=== PATIENT | male | born 1965 | race African-American/Black ===

== ENCOUNTER 2016-09-07 13:31 | Inpatient (IN) | payer OTHER ==
[2016-09-07 15:40] VITALS: BMI 17.9
--- NOTE | 2016-09-07 18:26 | HP ---
COWS - Scale Resting Pulse: 1= [place] 81-100 Sweatin= Chills/Flushing Restless Observation: 3= Extraneous Movement Pupil Size: 0= Normal to Room Light Bone or Joint Aches: 2= Severe Diffuse Aches Runny Nose/ Eye Tearin= Runny Nose/Eyes GI Upset > 30mins: 1= Stomach Cramp Tremor Observation: 2= Slight Tremor Visible Yawning Observation: 1= 1-2x During Session Anxiety or Irritability: 2=Irritable/Anxious Goose Flesh Skin: 0=Smooth Skin COWS Score: 15 Admission [facility] Chief Complaint: WITHDRAWAL SX Allergies/Adverse Reactions: Allergies Allergy/AdvReac Type Severity Reaction Status Date / Time No Known Allergies Allergy Verified 09/15/14 14:52 History of Present Illness: 51 YEARS OLD MALE WITH LONG HISTORY OF ALCOHOL OPIOID NICOTINE DEPENDENCE HAS ASTHMA AND WEIGHT LOSS HAS DEPRESSION IS ADMITTED TO DETOX Exam Limitations: No Limitations - Ebola screening Have you traveled outside of the country in the last 21 days: No Have you had contact with anyone from an Ebola affected area: No Have you been sick,other than usual withdrawal symptoms: No Do you have a fever: No - Review of Systems Constitutional: Chills, Loss of Appetite, Changes in sleep, Unintentional Wgt. Loss, Unexplained wgt Loss EENT: reports: Hearing Loss (RIGHT EAR) Respiratory: reports: No Symptoms reported Cardiac: reports: No Symptoms Reported GI: reports: Nausea, Poor Appetite, Poor Fluid Intake, Indigestion, Abdominal cramping : reports: No Symptoms Reported Musculoskeletal: reports: Back Pain, Joint Pain, Muscle Pain, Neck Pain Integumentary: reports: No Symptoms Reported Neuro: reports: Tremors Endocrine: reports: No Symptoms Reported Hematology: reports: No Symptoms Reported Psychiatric: reports: Judgement Intact, Depressed Other Systems: Reviewed and Negative Patient History - Patient Medical History Hx Anemia: No Hx Asthma: Yes (MDI) Hx Chronic Obstructive Pulmonary Disease (COPD): Yes Hx Cancer: No Hx Cardiac Disorders: No Hx Congestive Heart Failure: No Hx Hypertension: No Hx Hypercholesterolemia: No Hx Pacemaker: No HX Cerebrovascular Accident: No Hx Seizures: No Hx Dementia: No Hx Diabetes: No Hx Gastrointestinal Disorders: No Hx Liver Disease: No Hx Genitourinary Disorders: No Hx Sexually Transmitted Disorders: Yes (gonorrhea at age 24 in 1992) Hx Renal Disease (ESRD): No Hx Thyroid Disease: No Hx Human Immunodeficiency Virus (HIV): No (NEGATIVE HX) Hx Hepatitis C: No Hx Depression: Yes Hx Suicide Attempt: Yes (1985 OVER DOSE) Hx Bipolar Disorder: No Hx Schizophrenia: No - Patient Surgical History Past Surgical History: No Hx Neurologic Surgery: No Hx Cataract Extraction: No Hx Cardiac Surgery: No Hx Lung Surgery: No Hx Breast Surgery: No Hx Breast Biopsy: No Hx Abdominal Surgery: No Hx Appendectomy: No Hx Cholecystectomy: No Hx Genitourinary Surgery: No Hx Orthopedic Surgery: No - PPD History Previous Implant?: Yes Documented Results: Negative w/proof Implanted On Prior R Admission?: Yes Date: 01/23/16 Results: 0 mm PPD to be Administered?: No - Smoking Cessation Smoking history: Current every day smoker Have you smoked in the past 12 months: Yes Aproximately how many cigarettes per day: 10 Cigars Per Day: 0 Hx Chewing Tobacco Use: No Initiated information on smoking cessation: Yes 'Breaking Loose' booklet given: 09/07/16 - Substance & Tx. History Hx Alcohol Use: Yes Hx Substance Use: Yes Substance Use Type: Alcohol, Cocaine, Marijuana, Opiates Hx Substance Use Treatment: Yes - Substances Abused Alcohol Route: Oral Frequency: Daily Amount used: 16OZ X 1 BEER Age of first use: 12 Date of Last Use: 09/06/16 Heroin Route: Inhalation Frequency: Daily Amount used: 10 BAGS Age of first use: 24 Date of Last Use: 09/07/16 Cocaine Route: Smoking Frequency: Daily Amount used: 200$ Age of first use: 13 Date of Last Use: 09/07/16 Marijuana/Hashish Route: Smoking Frequency: Daily Amount used: JOINT Age of first use: 13 Date of Last Use: 09/07/16 Family Disease History - Family Disease History Family Disease History: Other: Father (NEVER MET), Mother (ASTHMA ) Admission Physical Exam S - Vital Signs Vital Signs: Vital Signs - 24 hr 09/07/16 15:37 Temperature 97.4 F L Pulse Rate 85 Respiratory 20 Rate Blood Pressure 132/74 - Physical General Appearance: Yes: Appropriately Dressed, Mild Distress, Thin, Tremorous, Irritable, Sweating, Anxious HEENTM: Yes: Hearing grossly Normal, Normal ENT Inspection, Normocephalic, Normal Voice Respiratory: Yes: Chest Non-Tender, Lungs Clear, Normal Breath Sounds, No Respiratory Distress, No Accessory Muscle Use Neck: Yes: Supple, Trachea in good position Breast: Yes: Breasts Symetrical Cardiology: Yes: Regular Rhythm, Regular Rate, S1, S2 Abdominal: Yes: Non Tender, Soft Genitourinary: Yes: Within Normal Limits Back: Yes: Normal Inspection Musculoskeletal: Yes: full range of Motion, Gait Steady, Back pain, Muscle Pain Extremities: Yes: Normal Inspection, Normal Range of Motion, Non-Tender, Tremors Neurological: Yes: Fully Oriented, Alert, Motor Strength 5/5, Depressed Affect Integumentary: Yes: Warm Lymphatic: Yes: Within Normal Limits - Diagnostic (1) Asthma Current Visit: Yes Status: Chronic Qualifiers: Asthma severity: mild intermittent Asthma complication type: with status asthmaticus Qualified Code(s): J45.22 - Mild intermittent asthma with status asthmaticus Comment: COMPLETED PREDNISON TODAY (2) COPD (chronic obstructive pulmonary disease) Current Visit: Yes Status: Chronic Qualifiers: COPD type: emphysema Emphysema type: other Qualified Code(s): J43.8 - Other emphysema (3) Nicotine dependence Current Visit: Yes Status: Acute Qualifiers: Nicotine product type: cigarettes Substance use status: in withdrawal Qualified Code(s): F17.213 - Nicotine dependence, cigarettes, with withdrawal (4) Opioid dependence with withdrawal Current Visit: Yes Status: Acute (5) Cocaine dependence, uncomplicated Current Visit: Yes Status: Chronic (6) Cannabis dependence, uncomplicated Current Visit: Yes Status: Chronic (7) Weight loss Current Visit: Yes Status: Acute (8) GERD (gastroesophageal reflux disease) Current Visit: Yes Status: Chronic Qualifiers: Esophagitis presence: without esophagitis Qualified Code(s): K21.9 - Gastro-esophageal reflux disease without esophagitis (9) Depression (emotion) Current Visit: Yes Status: Suspected Qualifiers: Depression Type: dysthymia Qualified Code(s): F34.1 - Dysthymic disorder (10) Hard of hearing Current Visit: Yes Status: Chronic Qualifiers: Hearing loss type: conductive Laterality: right Contralateral hearing status: unspecified Qualified Code(s): H90.11 - Conductive hearing loss, unilateral, right ear, with unrestricted hearing on the contralateral side Cleared for Admission [facility] - Detox or Rehab S Level of Care: Medically Managed Detox Regimen/Protocol: Methadone [facility] Breath Alcohol Content Breath Alcohol Content: 0 Urine Drug Screen - Results Drug Screen Negative: No Urine Drug Screen Results: THC-Marijuana, MIGUELINA-Cocaine, OPI-Opiates
[2016-09-07] MEDS ORDERED: NICOTINE POLACRILEX 2 MG GUM BC PRN (18:32)
[2016-09-07] MEDS ORDERED: MAG HYDROX/AL HYDROX/SIMETH 30 ML UNIT-DOSE CUP PO PRN (18:32)
[2016-09-07] MEDS ORDERED: LOPERAMIDE HCL 2 MG CAPSULE PO PRN (18:32)
[2016-09-07] MEDS ORDERED: MAGNESIUM HYDROX 2400MG/30ML ORAL SUSPENSION 30 ML CUP PO PRN (18:32)
[2016-09-07] MEDS ORDERED: guaiFENesin/D-METHORPHAN HB 10 ML UNIT-DOSE CUPS PO PRN (18:32)
[2016-09-07] MEDS ORDERED: MENTHOL/PHENOL 1 EACH UD MM PRN (18:32)
[2016-09-07] MEDS ORDERED: ACETAMINOPHEN 325 MG TABLET (FP) PO PRN (18:32)
[2016-09-07] MEDS ORDERED: P-EPHED 60MG/TRIPROLIDI 2.5MG TABLET PO PRN (18:32)
[2016-09-07] MEDS ORDERED: MAGNESIUM CITRATE 300 ML BOTTLE PO PRN (18:32)
[2016-09-07] MEDS ORDERED: ALBUTEROL SO4 2.5/IPRATROPIUM 0.5 INH SOL 3 ML VIAL.NEB. NEB PRN (18:35)
[2016-09-07] MEDS ORDERED: ALBUTEROL SO4 6.7 GM HFA INHALER IH PRN (18:35)
[2016-09-07] MEDS ORDERED: METHADONE HCL 10 MG TABLET (FOR DETOX USE ONLY) PO ONE ×2 (20:00→23:00)
[2016-09-07] MEDS: diazePAM 5 MG TABLET PO PRN (20:11)
[2016-09-07 22:44] LABS: URINE APPEARANCE CLEAR; URINE BILIRUBIN NEGATIVE (NEGATIVE); URINE BLOOD NEGATIVE (NEGATIVE); URINE COLOR LTYELLOW; URINE GLUCOSE (UA) NEGATIVE (NEGATIVE); URINE KETONE NEGATIVE (NEGATIVE); URINE NITRITE NEGATIVE (NEGATIVE); URINE PROTEIN NEGATIVE (NEGATIVE); URINE UROBILINOGEN NEGATIVE E.U./dl (0.2-1.0)
[2016-09-07 22:45] LABS: URINE LEUK ESTERASE TRACE (NEGATIVE)
[2016-09-07 22:49] LABS: URINE BACTERIA RARE /hpf (NONE SEEN); URINE MUCUS RARE; URINE RBC 1 /hpf (0-3); URINE WBC 2 /hpf (3-5)
[2016-09-07] MEDS: THIAMINE HCL 100 MG TABLET (FP) PO SCH (23:17)
[2016-09-07] MEDS: BUDESONIDE/FORMETEROL FUMARATE 80/4.5 mcg INHALER IH SCH (23:17)
[2016-09-07] MEDS: RANITIDINE HCL 150 MG TABLET (FP) PO SCH (23:19)
[2016-09-08] MEDS: diazePAM 5 MG TABLET PO PRN ×3 (05:58→22:44)
--- NOTE | 2016-09-08 09:53 | EKG ---
Test Reason : Blood Pressure : / mmHG Vent. Rate : 061 BPM Atrial Rate : 061 BPM P-R Int : 162 ms QRS Dur : 080 ms QT Int : 392 ms P-R-T Axes : 075 082 069 degrees QTc Int : 394 ms NORMAL SINUS RHYTHM VOLTAGE CRITERIA FOR LEFT VENTRICULAR HYPERTROPHY CANNOT RULE OUT SEPTAL INFARCT , AGE UNDETERMINED ABNORMAL ECG NO PREVIOUS ECGS AVAILABLE Confirmed by MARIA C DOWNEY MD ([id number]) on 09/08/2016 9:53:03 AM Referred By: Confirmed By:MARIA C DOWNEY MD
[2016-09-08] MEDS ORDERED: METHADONE HCL 10 MG TABLET (FOR DETOX USE ONLY) PO ONE (10:00)
[2016-09-08 10:26] LABS: MCHC 33.5 g/dl (32.0-35.9); MEAN CELL VOLUME 80.6 fl (80-96); MEAN PLT VOLUME 9.2 fl (7.5-11.1); PLATELET COUNT 191 K/MM3 (134-434); RDW 15.4 % (11.9-15.9); WHITE BLOOD COUNT 6.2 K/mm3 (4.0-10.0)
[2016-09-08] MEDS: BUDESONIDE/FORMETEROL FUMARATE 80/4.5 mcg INHALER IH SCH ×2 (10:30→22:43)
[2016-09-08] MEDS: PRENATAL VITAMINS W/ FOLIC ACID TABLET (FP) PO SCH (10:30)
[2016-09-08] MEDS: FLUTICASONE PROP 0.05% 16 GM NASAL SPRAY NS SCH (10:30)
[2016-09-08] MEDS: NICOTINE 14 MG/24 HOURS TOPICAL PATCH TD SCH (10:31)
[2016-09-08 10:32] LABS: ALBUMIN 3.2 g/dl (3.4-5.0); ANION GAP 8 (8-16); CALCIUM 8.4 mg/dL (8.5-10.1); CO2 32 mmol/L (21-32); GLUCOSE,RANDOM 116 mg/dL (74-106); SGOT/AST 37 U/L (15-37); SGPT/ALT 48 U/L (12-78)
[2016-09-08 10:35] LABS: ALK PHOS 81 U/L (45-117); BILIRUBIN,TOTAL 0.3 mg/dL (0.2-1.0); COCKROFT - GAULT 79.46; CREATININE 0.9 mg/dL (0.7-1.3); TOT PROT 5.9 g/dl (6.4-8.2)
[2016-09-08] MEDS: RANITIDINE HCL 150 MG TABLET (FP) PO SCH ×2 (11:38→22:43)
--- NOTE | 2016-09-08 11:47 | PN ---
[facility] COWS - Scale Resting Pulse: 0= [place] 80 or Below Sweatin= Chills/Flushing Restless Observation: 3= Extraneous Movement Pupil Size: 2= Moderately Dilated Bone or Joint Aches: 4=Acute Joint/Muscle Pain Runny Nose/ Eye Tearin= Nasal Congestion GI Upset > 30mins: 1= Stomach Cramp Tremor Observation of Outstretched Hands: 2= Slight Tremor Visible Yawning Observation: 2= >3x During Session Anxiety or Irritability: 1=Feels Anxious/Irritable Goose Flesh Skin: 0=Smooth Skin COWS Score: 17 BHS Progress Note (SOAP) Subjective: ANXIETY,SWEATS, Objective: 09/08/16 11:46 Vital Signs Temperature 97.5 F L 09/08/16 10:58 Pulse Rate 66 09/08/16 10:58 Respiratory Rate 18 09/08/16 10:58 Blood Pressure 109/64 09/08/16 10:58 O2 Sat by Pulse Oximetry (%) Laboratory Last Values WBC 6.2 K/mm3 (4.0-10.0) D 09/08/16 07:50 RBC 4.07 M/mm3 (4.00-5.60) 09/08/16 07:50 Hgb 11.0 GM/dL (11.7-16.9) L 09/08/16 07:50 Hct 32.8 % (35.4-49) L 09/08/16 07:50 MCV 80.6 fl (80-96) 09/08/16 07:50 MCHC 33.5 g/dl (32.0-35.9) 09/08/16 07:50 RDW 15.4 % (11.9-15.9) 09/08/16 07:50 Plt Count 191 K/MM3 (134-434) 09/08/16 07:50 MPV 9.2 fl (7.5-11.1) 09/08/16 07:50 Sodium 144 mmol/L (136-145) 09/08/16 07:50 Potassium 3.5 mmol/L (3.5-5.1) D 09/08/16 07:50 Chloride 104 mmol/L (98-107) 09/08/16 07:50 Carbon Dioxide 32 mmol/L (21-32) 09/08/16 07:50 Anion Gap 8 (8-16) 09/08/16 07:50 BUN 11 mg/dL (7-18) D 09/08/16 07:50 Creatinine 0.9 mg/dL (0.7-1.3) 09/08/16 07:50 Creat Clearance w eGFR > 60 (>60) 09/08/16 07:50 Random Glucose 116 mg/dL (74-106) H 09/08/16 07:50 Calcium 8.4 mg/dL (8.5-10.1) L 09/08/16 07:50 Total Bilirubin 0.3 mg/dL (0.2-1.0) D 09/08/16 07:50 AST 37 U/L (15-37) D 09/08/16 07:50 ALT 48 U/L (12-78) D 09/08/16 07:50 Alkaline Phosphatase 81 U/L (45-117) D 09/08/16 07:50 Total Protein 5.9 g/dl (6.4-8.2) L 09/08/16 07:50 Albumin 3.2 g/dl (3.4-5.0) L 09/08/16 07:50 Urine Color Ltyellow 09/07/16 21:40 Urine Appearance Clear 09/07/16 21:40 Urine pH 5.0 (5.0-8.0) 09/07/16 21:40 Ur Specific [place] 1.020 (1.005-1.025) 09/07/16 21:40 Urine Protein Negative (NEGATIVE) 09/07/16 21:40 Urine Glucose (UA) Negative (NEGATIVE) 09/07/16 21:40 Urine Ketones Negative (NEGATIVE) 09/07/16 21:40 Urine Blood Negative (NEGATIVE) 09/07/16 21:40 Urine Nitrite Negative (NEGATIVE) 09/07/16 21:40 Urine Bilirubin Negative (NEGATIVE) 09/07/16 21:40 Urine Urobilinogen Negative E.U./dl (0.2-1.0) 09/07/16 21:40 Ur Leukocyte Esterase Trace (NEGATIVE) H 09/07/16 21:40 Urine RBC 1 /hpf (0-3) 09/07/16 21:40 Urine WBC 2 /hpf (3-5) 09/07/16 21:40 Ur Epithelial Cells Rare /hpf (FEW) 09/07/16 21:40 Urine Bacteria Rare /hpf (NONE SEEN) 09/07/16 21:40 Urine Mucus Rare 09/07/16 21:40 Assessment: 09/08/16 11:47 WITHDRAWAL SX Plan: CONTINUE DETOX INCREASE PO FLUIDS
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
[2016-09-08] MEDS: THIAMINE HCL 100 MG TABLET (FP) PO SCH (22:43)
[2016-09-09] MEDS: diazePAM 5 MG TABLET PO PRN (05:45)
[2016-09-09] MEDS ORDERED: METHADONE HCL 5 MG TABLET (FOR DETOX USE ONLY) PO ONE (10:00)
[2016-09-09] MEDS: BUDESONIDE/FORMETEROL FUMARATE 80/4.5 mcg INHALER IH SCH ×2 (10:36→22:53)
[2016-09-09] MEDS: RANITIDINE HCL 150 MG TABLET (FP) PO SCH ×2 (10:37→22:53)
[2016-09-09] MEDS: PRENATAL VITAMINS W/ FOLIC ACID TABLET (FP) PO SCH (10:37)
[2016-09-09] MEDS: NICOTINE 14 MG/24 HOURS TOPICAL PATCH TD SCH (10:37)
[2016-09-09] MEDS: FLUTICASONE PROP 0.05% 16 GM NASAL SPRAY NS SCH (11:50)
[2016-09-09 15:06] LABS: URINE APPEARANCE CLEAR; URINE BILIRUBIN NEGATIVE (NEGATIVE); URINE BLOOD NEGATIVE (NEGATIVE); URINE COLOR COLORLESS; URINE GLUCOSE (UA) NEGATIVE (NEGATIVE); URINE KETONE NEGATIVE (NEGATIVE); URINE LEUK ESTERASE NEGATIVE (NEGATIVE); URINE NITRITE NEGATIVE (NEGATIVE); URINE PROTEIN NEGATIVE (NEGATIVE); URINE UROBILINOGEN NEGATIVE E.U./dl (0.2-1.0)
--- NOTE | 2016-09-09 19:10 | PN ---
S COWS - Scale Resting Pulse: 0= [place] 80 or Below Sweatin= Chills/Flushing Restless Observation: 1= Difficult to Sit Still Pupil Size: 0= Normal to Room Light Bone or Joint Aches: 2= Severe Diffuse Aches Runny Nose/ Eye Tearin= Nasal Congestion GI Upset > 30mins: 1= Stomach Cramp Tremor Observation of Outstretched Hands: 2= Slight Tremor Visible Yawning Observation: 2= >3x During Session Anxiety or Irritability: 2=Irritable/Anxious Goose Flesh Skin: 3=Piloerection COWS Score: 15 S Progress Note (SOAP) Subjective: Fatigue, Body Aches, Tremors. Objective: PT. A & O X 3. NO ACUTE DISTRESS. PT. DENIES CHEST PAIN. 09/09/16 19:10 Vital Signs Temperature 98.1 F 09/09/16 17:43 Pulse Rate 79 09/09/16 17:43 Respiratory Rate 19 09/09/16 17:43 Blood Pressure 115/69 09/09/16 17:43 O2 Sat by Pulse Oximetry (%) Laboratory Tests 09/07/16 09/08/16 09/08/16 21:40 07:50 07:50 WBC 6.2 D RBC 4.07 Hgb 11.0 L Hct 32.8 L MCV 80.6 MCHC 33.5 RDW 15.4 Plt Count 191 MPV 9.2 Sodium 144 Potassium 3.5 D Chloride 104 Carbon Dioxide 32 Anion Gap 8 BUN 11 D Creatinine 0.9 Creat Clearance w eGFR > 60 Random Glucose 116 H Calcium 8.4 L Total Bilirubin 0.3 D AST 37 D ALT 48 D Alkaline Phosphatase 81 D Total Protein 5.9 L Albumin 3.2 L Urine Color Ltyellow Urine Appearance Clear Urine pH 5.0 Ur Specific [place] 1.020 Urine Protein Negative Urine Glucose (UA) Negative Urine Ketones Negative Urine Blood Negative Urine Nitrite Negative Urine Bilirubin Negative Urine Urobilinogen Negative Ur Leukocyte Esterase Trace H Urine RBC 1 Urine WBC 2 Ur Epithelial Cells Rare Urine Bacteria Rare Urine Mucus Rare RPR Titer 09/08/16 09/09/16 07:50 09:03 WBC RBC Hgb Hct MCV MCHC RDW Plt Count MPV Sodium Potassium Chloride Carbon Dioxide Anion Gap BUN Creatinine Creat Clearance w eGFR Random Glucose Calcium Total Bilirubin AST ALT Alkaline Phosphatase Total Protein Albumin Urine Color Colorless Urine Appearance Clear Urine pH 6.0 Ur Specific [place] 1.010 Urine Protein Negative Urine Glucose (UA) Negative Urine Ketones Negative Urine Blood Negative Urine Nitrite Negative Urine Bilirubin Negative Urine Urobilinogen Negative Ur Leukocyte Esterase Negative Urine RBC Urine WBC Ur Epithelial Cells Urine Bacteria Urine Mucus RPR Titer Nonreactive LABS NOTED. Assessment: 09/09/16 19:12 WITHDRAWAL SYMPTOMS. Plan: CONTINUE DETOX.
[2016-09-09] MEDS: THIAMINE HCL 100 MG TABLET (FP) PO SCH (22:53)
[2016-09-09] MEDS: diphenhydrAMINE HCL 50 MG CAPSULE PO PRN (22:54)
[2016-09-10] MEDS: diazePAM 5 MG TABLET PO PRN ×2 (05:26→10:27)
[2016-09-10] MEDS ORDERED: METHADONE HCL 5 MG TABLET (FOR DETOX USE ONLY) PO ONE (10:00)
[2016-09-10] MEDS: BUDESONIDE/FORMETEROL FUMARATE 80/4.5 mcg INHALER IH SCH ×2 (10:26→22:33)
[2016-09-10] MEDS: FLUTICASONE PROP 0.05% 16 GM NASAL SPRAY NS SCH (10:26)
[2016-09-10] MEDS: PRENATAL VITAMINS W/ FOLIC ACID TABLET (FP) PO SCH (10:26)
[2016-09-10] MEDS: RANITIDINE HCL 150 MG TABLET (FP) PO SCH ×2 (10:26→22:33)
[2016-09-10] MEDS: NICOTINE 14 MG/24 HOURS TOPICAL PATCH TD SCH (10:27)
--- NOTE | 2016-09-10 15:52 | PN ---
[facility] Progress Note (SOAP) Subjective: Tremor, chills, anxious, c/o swelling to B/L ankles stating he stands for long period of time and left ankle with mild pain more than right ankle. He denies sob, chest pain or injury to feet/ankles. Objective: 09/10/16 15:49 Last Vital Signs Temp Pulse Resp BP Pulse Ox 96.8 F L 67 18 130/76 09/10/16 14:04 09/10/16 14:04 09/10/16 14:04 09/10/16 14:04 PE: B/L feet and ankle swollen L>R, ppp, no increased warmth noted, slightly tender to touch L>R ankle Laboratory Tests 09/07/16 09/08/16 09/08/16 21:40 07:50 07:50 WBC 6.2 D RBC 4.07 Hgb 11.0 L Hct 32.8 L MCV 80.6 MCHC 33.5 RDW 15.4 Plt Count 191 MPV 9.2 Sodium 144 Potassium 3.5 D Chloride 104 Carbon Dioxide 32 Anion Gap 8 BUN 11 D Creatinine 0.9 Creat Clearance w eGFR > 60 Random Glucose 116 H Calcium 8.4 L Total Bilirubin 0.3 D AST 37 D ALT 48 D Alkaline Phosphatase 81 D Total Protein 5.9 L Albumin 3.2 L Urine Color Ltyellow Urine Appearance Clear Urine pH 5.0 Ur Specific [place] 1.020 Urine Protein Negative Urine Glucose (UA) Negative Urine Ketones Negative Urine Blood Negative Urine Nitrite Negative Urine Bilirubin Negative Urine Urobilinogen Negative Ur Leukocyte Esterase Trace H Urine RBC 1 Urine WBC 2 Ur Epithelial Cells Rare Urine Bacteria Rare Urine Mucus Rare RPR Titer 09/08/16 09/09/16 07:50 09:03 WBC RBC Hgb Hct MCV MCHC RDW Plt Count MPV Sodium Potassium Chloride Carbon Dioxide Anion Gap BUN Creatinine Creat Clearance w eGFR Random Glucose Calcium Total Bilirubin AST ALT Alkaline Phosphatase Total Protein Albumin Urine Color Colorless Urine Appearance Clear Urine pH 6.0 Ur Specific [place] 1.010 Urine Protein Negative Urine Glucose (UA) Negative Urine Ketones Negative Urine Blood Negative Urine Nitrite Negative Urine Bilirubin Negative Urine Urobilinogen Negative Ur Leukocyte Esterase Negative Urine RBC Urine WBC Ur Epithelial Cells Urine Bacteria Urine Mucus RPR Titer Nonreactive Labs noted Assessment: 09/10/16 15:51 Withdrawal symptoms Noted with B/L ankle edema L>R Plan: Continue detox B/L ankle/feet edema: avoid long standing, elevate legs on pillows/blankets while in bed, motrin prn pain, send for xray of feet in AM
[2016-09-10] MEDS ORDERED: IBUPROFEN 400 MG TABLET (FP) PO PRN (15:55)
[2016-09-10] MEDS: THIAMINE HCL 100 MG TABLET (FP) PO SCH (22:33)
[2016-09-10] MEDS: diphenhydrAMINE HCL 50 MG CAPSULE PO PRN (22:34)
[2016-09-11] MEDS ORDERED: METHADONE HCL 10 MG TABLET (FOR DETOX USE ONLY) PO ONE (10:00)
[2016-09-11] MEDS: BUDESONIDE/FORMETEROL FUMARATE 80/4.5 mcg INHALER IH SCH ×2 (10:20→22:35)
[2016-09-11] MEDS: RANITIDINE HCL 150 MG TABLET (FP) PO SCH ×2 (10:43→22:36)
[2016-09-11] MEDS: PRENATAL VITAMINS W/ FOLIC ACID TABLET (FP) PO SCH (10:43)
[2016-09-11] MEDS: NICOTINE 14 MG/24 HOURS TOPICAL PATCH TD SCH (10:45)
[2016-09-11] MEDS: FLUTICASONE PROP 0.05% 16 GM NASAL SPRAY NS SCH (10:45)
--- NOTE | 2016-09-11 15:44 | PN ---
[facility] Progress Note (SOAP) Subjective: Sweating,interrupted sleep,restless. Objective: 09/11/16 15:42 Vital Signs - 8 hr 09/11/16 09/11/16 10:03 13:38 Temperature 96.0 F L 97.5 F L Pulse Rate 67 69 Respiratory 18 18 Rate Blood Pressure 125/66 138/78 Laboratory Last Values WBC 6.2 K/mm3 (4.0-10.0) D 09/08/16 07:50 RBC 4.07 M/mm3 (4.00-5.60) 09/08/16 07:50 Hgb 11.0 GM/dL (11.7-16.9) L 09/08/16 07:50 Hct 32.8 % (35.4-49) L 09/08/16 07:50 MCV 80.6 fl (80-96) 09/08/16 07:50 MCHC 33.5 g/dl (32.0-35.9) 09/08/16 07:50 RDW 15.4 % (11.9-15.9) 09/08/16 07:50 Plt Count 191 K/MM3 (134-434) 09/08/16 07:50 MPV 9.2 fl (7.5-11.1) 09/08/16 07:50 Sodium 144 mmol/L (136-145) 09/08/16 07:50 Potassium 3.5 mmol/L (3.5-5.1) D 09/08/16 07:50 Chloride 104 mmol/L (98-107) 09/08/16 07:50 Carbon Dioxide 32 mmol/L (21-32) 09/08/16 07:50 Anion Gap 8 (8-16) 09/08/16 07:50 BUN 11 mg/dL (7-18) D 09/08/16 07:50 Creatinine 0.9 mg/dL (0.7-1.3) 09/08/16 07:50 Creat Clearance w eGFR > 60 (>60) 09/08/16 07:50 Random Glucose 116 mg/dL (74-106) H 09/08/16 07:50 Calcium 8.4 mg/dL (8.5-10.1) L 09/08/16 07:50 Total Bilirubin 0.3 mg/dL (0.2-1.0) D 09/08/16 07:50 AST 37 U/L (15-37) D 09/08/16 07:50 ALT 48 U/L (12-78) D 09/08/16 07:50 Alkaline Phosphatase 81 U/L (45-117) D 09/08/16 07:50 Total Protein 5.9 g/dl (6.4-8.2) L 09/08/16 07:50 Albumin 3.2 g/dl (3.4-5.0) L 09/08/16 07:50 Urine Color Colorless 09/09/16 09:03 Urine Appearance Clear 09/09/16 09:03 Urine pH 6.0 (5.0-8.0) 09/09/16 09:03 Ur Specific [place] 1.010 (1.005-1.025) 09/09/16 09:03 Urine Protein Negative (NEGATIVE) 09/09/16 09:03 Urine Glucose (UA) Negative (NEGATIVE) 09/09/16 09:03 Urine Ketones Negative (NEGATIVE) 09/09/16 09:03 Urine Blood Negative (NEGATIVE) 09/09/16 09:03 Urine Nitrite Negative (NEGATIVE) 09/09/16 09:03 Urine Bilirubin Negative (NEGATIVE) 09/09/16 09:03 Urine Urobilinogen Negative E.U./dl (0.2-1.0) 09/09/16 09:03 Ur Leukocyte Esterase Negative (NEGATIVE) 09/09/16 09:03 Urine RBC 1 /hpf (0-3) 09/07/16 21:40 Urine WBC 2 /hpf (3-5) 09/07/16 21:40 Ur Epithelial Cells Rare /hpf (FEW) 09/07/16 21:40 Urine Bacteria Rare /hpf (NONE SEEN) 09/07/16 21:40 Urine Mucus Rare 09/07/16 21:40 RPR Titer Nonreactive (NONREACTIVE) 09/08/16 07:50 labs noted X-Rays of feet noted, F/U with primary care doctor has been arranged Assessment: 09/11/16 15:43 Withdrawal Sx. Plan: Continue detox
[2016-09-11] MEDS: THIAMINE HCL 100 MG TABLET (FP) PO SCH (22:35)
[2016-09-11] MEDS: diphenhydrAMINE HCL 50 MG CAPSULE PO PRN (22:36)
[2016-09-12] MEDS ORDERED: METHADONE HCL 5 MG TABLET (FOR DETOX USE ONLY) PO ONE (06:00)
[2016-09-12 06:48] VITALS: BP 135/71; PULSE 67; TEMP 97.2
[2016-09-12] MEDS: PRENATAL VITAMINS W/ FOLIC ACID TABLET (FP) PO SCH (10:42)
[2016-09-12] MEDS: NICOTINE 14 MG/24 HOURS TOPICAL PATCH TD SCH (10:42)
[2016-09-12] MEDS: FLUTICASONE PROP 0.05% 16 GM NASAL SPRAY NS SCH (10:42)
[2016-09-12] MEDS: RANITIDINE HCL 150 MG TABLET (FP) PO SCH (10:42)
[2016-09-12] MEDS: BUDESONIDE/FORMETEROL FUMARATE 80/4.5 mcg INHALER IH SCH (10:42)
--- NOTE | 2016-09-12 10:46 | DS ---
[facility] Detox Discharge Summary Admission Date: 09/07/16 Discharge Date: 09/12/16 - History Present History: Cannabis Dependence, Cocaine Dependence, Opioid Dependence Additional Comments: DETOX COMPLETED. ALERT O X 3. NAD. REFERRED AND D/C TO REHAB IF BED AVAILABLE. Pertinent Past History: GERD [employer] LEARNING DISORDER WEIGHT LOSS - Physical Exam Results Vital Signs: Vital Signs Temperature 97.2 F L 09/12/16 06:48 Pulse Rate 67 09/12/16 06:48 Respiratory Rate 18 09/12/16 06:48 Blood Pressure 135/71 09/12/16 06:48 O2 Sat by Pulse Oximetry (%) Pertinent Admission Physical Exam Findings: WITHDRAWAL SX - Treatment Hospital Course: Detox Protocol Followed, Detoxed Safely, Responded well, Discharged Condition Good, Rehab Referral Accepted Patient has Accepted a Rehab Referral to: [facility] - Medication Discharge Medications: Ambulatory Orders Fluticasone Propionate [Flovent Hfa] 220 mcg IH BID #1 aer.w.[email or web address] 10/08/14 Albuterol Sulfate Inhaler - [Ventolin HFA Inhaler -] 2 inh PO Q4H PRN #1 inh - Diagnosis (1) Nicotine dependence Current Visit: Yes Status: Acute Qualifiers: Nicotine product type: cigarettes Substance use status: in withdrawal Qualified Code(s): F17.213 - Nicotine dependence, cigarettes, with withdrawal (2) Asthma Current Visit: Yes Status: Chronic Qualifiers: Asthma severity: mild intermittent Asthma complication type: with status asthmaticus Qualified Code(s): J45.22 - Mild intermittent asthma with status asthmaticus (3) COPD (chronic obstructive pulmonary disease) Current Visit: Yes Status: Chronic Qualifiers: COPD type: emphysema Emphysema type: other Qualified Code(s): J43.8 - Other emphysema (4) Alcohol dependence with withdrawal Current Visit: No Status: Chronic Qualifiers: Complication of substance-induced condition: uncomplicated Qualified Code(s): F10.230 - Alcohol dependence with withdrawal, uncomplicated - AMA Did Patient Leave Against Medical Advice: No
== END 2016-09-12 13:54 | disposition other institution (70) | DRG 773 ==
LOC: YASAS 13:31 → Y3N 19:15
PROVIDERS: ADMIT Internal Medicine; ATTEND Internal Medicine
PROC: HZ2ZZZZ Detoxification Services for Substance Abuse Treatment (ICD-10-PCS; principal; 2016-09-12)
DX: F11.23 Opioid dependence with withdrawal (principal); F10.230 Alcohol dependence with withdrawal, uncomplicated; F14.20 Cocaine dependence, uncomplicated; F12.20 Cannabis dependence, uncomplicated; F17.213 Nicotine dependence, cigarettes, with withdrawal; F19.24 Other psychoactive substance dependence with psychoactive substance-induced mood disorder; J45.20 Mild intermittent asthma, uncomplicated; J43.8 Other emphysema; R63.4 Abnormal weight loss; Z68.1 Body mass index [BMI] 19.9 or less, adult
CPT/HCPCS: 36415; 73610-TC-LT; 73610-TC-RT; 73630-TC-LT; 73630-TC-RT; 80053; 81003; 81015; 85027; 86593; 93005; 93010

== ENCOUNTER 2016-09-12 14:12 | Inpatient (IN) | payer OTHER ==
[2016-09-12 14:30] VITALS: BMI 20.2
[2016-09-12] MEDS ORDERED: diphenhydrAMINE HCL 50 MG CAPSULE PO PRN (14:50)
[2016-09-12] MEDS ORDERED: ACETAMINOPHEN 325 MG TABLET (FP) PO PRN (14:50)
[2016-09-12] MEDS ORDERED: hydrOXYzine PAMOATE 50 MG CAPSULE (FP) PO PRN (14:50)
[2016-09-12] MEDS ORDERED: MAGNESIUM CITRATE 300 ML BOTTLE PO PRN (14:50)
[2016-09-12] MEDS ORDERED: MAGNESIUM HYDROX 2400MG/30ML ORAL SUSPENSION 30 ML CUP PO PRN (14:50)
[2016-09-12] MEDS ORDERED: P-EPHED 60MG/TRIPROLIDI 2.5MG TABLET PO PRN (14:50)
[2016-09-12] MEDS ORDERED: IBUPROFEN 400 MG TABLET (FP) PO PRN (14:50)
[2016-09-12] MEDS ORDERED: NICOTINE POLACRILEX 2 MG GUM BUC PRN (14:50)
[2016-09-12] MEDS ORDERED: guaiFENesin/D-METHORPHAN HB 10 ML UNIT-DOSE CUPS PO PRN (14:50)
[2016-09-12] MEDS ORDERED: MENTHOL/PHENOL 1 EACH UD MM PRN (14:50)
[2016-09-12] MEDS ORDERED: LOPERAMIDE HCL 2 MG CAPSULE PO PRN (14:50)
[2016-09-12] MEDS ORDERED: MAG HYDROX/AL HYDROX/SIMETH 30 ML UNIT-DOSE CUP PO PRN (14:50)
--- NOTE | 2016-09-12 14:54 | HP ---
[facility] Re[facility] Assess/Revision - Admission History Admitted to Rehab from: [facility] Date of Admission to Rehab: 09/12/16 - Vital signs Vital Signs: Vital Signs Period Temp Pulse Resp BP Sys/[place] Pulse Ox Last 24 Hr 98.5 F 72 18 126/70 - Findings Detox History & Physical reviewed: Yes Concur with findings: Yes Comments/Additional Findings: FOR REHAB PROTOCOL
[2016-09-12] MEDS: ALBUTEROL SO4 6.7 GM HFA INHALER IH PRN (20:08)
[2016-09-12] MEDS: THIAMINE HCL 100 MG TABLET (FP) PO SCH (22:29)
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
[2016-09-13] MEDS: PRENATAL VITAMINS W/ FOLIC ACID TABLET (FP) PO SCH (10:28)
[2016-09-13] MEDS: NICOTINE 21 MG/24 HOURS TOPICAL PATCH TD SCH (10:29)
[2016-09-13] MEDS: BUDESONIDE/FORMETEROL FUMARATE 80/4.5 mcg INHALER IH SCH ×2 (10:29→23:45)
[2016-09-13] MEDS: THIAMINE HCL 100 MG TABLET (FP) PO SCH (23:45)
[2016-09-14] MEDS: ALBUTEROL SO4 6.7 GM HFA INHALER IH PRN (06:00)
[2016-09-14] MEDS: BUDESONIDE/FORMETEROL FUMARATE 80/4.5 mcg INHALER IH SCH ×3 (10:21→21:59)
[2016-09-14] MEDS: NICOTINE 21 MG/24 HOURS TOPICAL PATCH TD SCH (10:22)
[2016-09-14] MEDS: PRENATAL VITAMINS W/ FOLIC ACID TABLET (FP) PO SCH (10:22)
[2016-09-14] MEDS: THIAMINE HCL 100 MG TABLET (FP) PO SCH ×2 (21:57→21:59)
[2016-09-15] MEDS: NICOTINE 21 MG/24 HOURS TOPICAL PATCH TD SCH (10:36)
[2016-09-15] MEDS: BUDESONIDE/FORMETEROL FUMARATE 80/4.5 mcg INHALER IH SCH ×2 (10:36→21:47)
[2016-09-15] MEDS: PRENATAL VITAMINS W/ FOLIC ACID TABLET (FP) PO SCH (10:36)
[2016-09-15] MEDS: THIAMINE HCL 100 MG TABLET (FP) PO SCH (21:47)
[2016-09-16] MEDS: PRENATAL VITAMINS W/ FOLIC ACID TABLET (FP) PO SCH (10:30)
[2016-09-16] MEDS: BUDESONIDE/FORMETEROL FUMARATE 80/4.5 mcg INHALER IH SCH ×2 (10:31→21:33)
[2016-09-16] MEDS: NICOTINE 21 MG/24 HOURS TOPICAL PATCH TD SCH (10:31)
[2016-09-16] MEDS: THIAMINE HCL 100 MG TABLET (FP) PO SCH (21:33)
[2016-09-17] MEDS: PRENATAL VITAMINS W/ FOLIC ACID TABLET (FP) PO SCH (10:10)
[2016-09-17] MEDS: NICOTINE 21 MG/24 HOURS TOPICAL PATCH TD SCH (10:10)
[2016-09-17] MEDS: BUDESONIDE/FORMETEROL FUMARATE 80/4.5 mcg INHALER IH SCH ×2 (10:10→22:06)
[2016-09-17] MEDS: THIAMINE HCL 100 MG TABLET (FP) PO SCH (22:06)
[2016-09-18] MEDS: PRENATAL VITAMINS W/ FOLIC ACID TABLET (FP) PO SCH (10:22)
[2016-09-18] MEDS: BUDESONIDE/FORMETEROL FUMARATE 80/4.5 mcg INHALER IH SCH ×2 (10:23→21:36)
[2016-09-18] MEDS: NICOTINE 21 MG/24 HOURS TOPICAL PATCH TD SCH (10:23)
[2016-09-18] MEDS: THIAMINE HCL 100 MG TABLET (FP) PO SCH (21:36)
[2016-09-19 06:37] VITALS: BP 127/83; PULSE 68; TEMP 97.5
--- NOTE | 2016-09-19 09:10 | PN ---
Psychiatric Progress Note Vital Signs: Vital Signs Period Temp Pulse Resp BP Sys/[place] Pulse Ox Last 24 Hr 97.5 F 68 18-18 127/83 Date of Session: 09/19/16 Chief Complaint:: Discharge Note HPI: Patient addressing Alcohol, Opoid, Cocaine and Cannabis dependence comorbid with Nicotine Dependence and Substance-Induced Mood Disorder ROS: COPD, GERD were medically managed Current Medications: Active Medications Generic Name Dose Route Start Last Admin Trade Name Freq PRN Reason Stop Dose Admin Acetaminophen 650 mg 09/12/16 14:50 Tylenol - PO Q4H PRN FEVER OR PAIN Al Hydroxide/Mg Hydroxide 30 ml 09/12/16 14:50 Mylanta Oral Suspension - PO Q6H PRN DYSPEPSIA Albuterol Sulfate 2 puff 09/12/16 14:52 09/14/16 06:00 Ventolin Hfa Inhaler - IH 2 puff Q4H PRN Administration ASTHMA Budesonide/Formoterol Fumarate 2 puff 09/13/16 10:00 09/18/16 21:36 Symbicort 80/4.5mcg - IH 2 inh BID MATT Administration Diphenhydramine HCl 50 mg 09/12/16 14:50 Benadryl - PO HSMR1 PRN FOR ITCHING Eucalyptus/Menthol/Phenol/Sorbitol 1 each 09/12/16 14:50 Cepastat Lozenge - MM Q4H PRN SORE THROAT Guaifenesin 10 ml 09/12/16 14:50 Robitussin Dm - PO Q6H PRN COUGH Hydroxyzine Pamoate 50 mg 09/12/16 14:50 Vistaril - PO Q4H PRN AGITATION Ibuprofen 400 mg 09/12/16 14:50 Motrin - PO Q6H PRN PAIN Loperamide HCl 4 mg 09/12/16 14:50 Imodium - PO Q6H PRN DIARRHEA Magnesium Hydroxide 30 ml 09/12/16 14:50 Milk Of Magnesia - PO DAILY PRN CONSTIPATION Nicotine 21 mg 09/13/16 10:00 09/18/16 10:23 Nicoderm Patch - TD Not Given DAILY MATT Nicotine Polacrilex 2 mg 09/12/16 14:50 Nicorette Gum - BUC Q2H PRN NICOTINE REPLACEMENT RX Multivit/Folic Acid/Iron 1 tab 09/13/16 10:00 09/18/16 10:22 Vitamins (Sjr) - PO 1 tab DAILY MATT Administration Pseudoephedrine/Triprolidine 1 combo 09/12/16 14:50 Actifed - PO TID PRN NASAL CONGESTION Thiamine HCl 100 mg 09/12/16 22:00 09/18/16 21:36 Vitamin B1 - PO Not Given HS MATT Current Side Effect: No Lab tests ordered: Yes Lab tests reviewed: Yes Provider note:: Patient has completed this program today. He has met his short term goals and will continue to address his issues in outpatient treatment at [facility] in the [place]. Told bid writer that from his participation in this program, he has learned the tools that will enable him to change his life style. He is stable for discharge today Total face to face time:: 35 Mental Status Exam - Mental Status Exam Alert and Oriented to: Time, Place, Person Cognitive Function: Fair Patient Appearance: Well Groomed Mood: Hopeful, Euthymic Affect: Appropriate Patient Behavior: Cooperative Speech Pattern: Clear Voice Loudness: Normal Thought Process: Intact, Goal Oriented Thought Disorder: Not Present Hallucinations: Denies Suicidal Ideation: Denies Homicidal Ideation: Denies Insight/Judgement: Good Sleep: Fair Appetite: Good Muscle strength/Tone: Normal Gait/Station: Normal Psychiatric Treatment Plan - Problem List (1) Alcohol dependence Current Visit: No (2) Opioid dependence Current Visit: No Comment: HEROIN AND PERCOCET USE (3) Cocaine dependence Current Visit: No (4) Cannabis dependence Current Visit: No (5) Nicotine dependence Current Visit: No Qualifiers: Nicotine product type: cigarettes Substance use status: in withdrawal Qualified Code(s): F17.213 - Nicotine dependence, cigarettes, with withdrawal (6) Psychoactive substance-induced mood disorder Current Visit: No (7) COPD (chronic obstructive pulmonary disease) Current Visit: No Qualifiers: COPD type: emphysema Emphysema type: other Qualified Code(s): J43.8 - Other emphysema (8) GERD (gastroesophageal reflux disease) Current Visit: No Qualifiers: Esophagitis presence: without esophagitis Qualified Code(s): K21.9 - Gastro-esophageal reflux disease without esophagitis (9) Hard of hearing Current Visit: No Qualifiers: Hearing loss type: conductive Laterality: right Contralateral hearing status: unspecified Qualified Code(s): H90.11 - Conductive hearing loss, unilateral, right ear, with unrestricted hearing on the contralateral side Initial treatment plan: Patient is discharged today and referred to [facility] for outpatient treatment
[2016-09-19] MEDS: PRENATAL VITAMINS W/ FOLIC ACID TABLET (FP) PO SCH (09:39)
[2016-09-19] MEDS: NICOTINE 21 MG/24 HOURS TOPICAL PATCH TD SCH (09:39)
[2016-09-19] MEDS: BUDESONIDE/FORMETEROL FUMARATE 80/4.5 mcg INHALER IH SCH (09:39)
== END 2016-09-19 09:45 | disposition home or self-care (01) | DRG 772 ==
LOC: YASAS 14:12 → Y3W 14:13
PROVIDERS: ADMIT Psychiatry & Neurology Psychiatry; ATTEND Psychiatry & Neurology Psychiatry
PROC: HZ42ZZZ Group Counseling for Substance Abuse Treatment, Cognitive-Behavioral (ICD-10-PCS; principal; 2016-09-12)
DX: F11.20 Opioid dependence, uncomplicated (principal); F10.20 Alcohol dependence, uncomplicated; F14.20 Cocaine dependence, uncomplicated; F12.20 Cannabis dependence, uncomplicated; F17.213 Nicotine dependence, cigarettes, with withdrawal; F19.24 Other psychoactive substance dependence with psychoactive substance-induced mood disorder; J45.909 Unspecified asthma, uncomplicated; J43.8 Other emphysema; K21.9 Gastro-esophageal reflux disease without esophagitis; H90.11 Conductive hearing loss, unilateral, right ear, with unrestricted hearing on the contralateral side; Z87.438 Personal history of other diseases of male genital organs

== ENCOUNTER 2021-09-13 11:48 | Inpatient (IN) | payer OTHER ==
[2021-09-13 12:06] VITALS: BMI 18.1
[2021-09-13] MEDS ORDERED: MAGNESIUM HYDROX 2400MG/30ML ORAL SUSPENSION 30 ML CUP PO PRN (13:51)
[2021-09-13] MEDS ORDERED: IBUPROFEN 400 MG TABLET (FP) PO PRN (13:51)
[2021-09-13] MEDS ORDERED: IBUPROFEN 600 MG TABLET (FP) PO PRN (13:51)
[2021-09-13] MEDS ORDERED: ACETAMINOPHEN 325 MG TABLET (FP) PO PRN ×2 (13:51)
[2021-09-13] MEDS ORDERED: DICYCLOMINE HCL 10 MG CAPSULE PO PRN (13:51)
[2021-09-13] MEDS ORDERED: MAG HYDROX/AL HYDROX/SIMETH 30 ML UNIT-DOSE CUP PO PRN (13:51)
[2021-09-13] MEDS ORDERED: METHOCARBAMOL 500 MG TABLET PO PRN (13:51)
[2021-09-13] MEDS ORDERED: MAGNESIUM CITRATE 300 ML BOTTLE PO PRN (13:51)
[2021-09-13] MEDS ORDERED: LOPERAMIDE HCL 2 MG CAPSULE PO PRN (13:51)
[2021-09-13] MEDS ORDERED: ONDANSETRON *ODT* 4 MG TABLET SL PRN (13:51)
[2021-09-13] MEDS ORDERED: BISMUTH SUBSALICYLATE 262 MG/15 ML BTL PO PRN (13:51)
[2021-09-13] MEDS ORDERED: BENZOCAINE/MENTHOL (CHLORASEPTIC ) LOZENGE MM PRN (13:51)
[2021-09-13] MEDS: hydrOXYzine PAMOATE 25 MG CAPSULE (FP) PO SCH ×3 (18:02→22:40)
[2021-09-13] MEDS: PRENATAL VITAMINS W/ FOLIC ACID TABLET (FP) PO SCH (18:02)
[2021-09-13] MEDS ORDERED: MELATONIN 5 MG TABLETS PO SCH (22:00)
[2021-09-13] MEDS ORDERED: THIAMINE HCL 100 MG TABLET (FP) PO SCH (22:00)
[2021-09-14] MEDS: hydrOXYzine PAMOATE 25 MG CAPSULE (FP) PO SCH ×3 (08:13→13:08)
[2021-09-14] MEDS ORDERED: ALBUTEROL SO4 HFA INHALER IH PRN (08:49)
[2021-09-14] MEDS ORDERED: methaDONE HCL 40 MG DISPERSABLE TABLET PO SCH (09:30)
[2021-09-14] MEDS: PRENATAL VITAMINS W/ FOLIC ACID TABLET (FP) PO SCH (09:37)
[2021-09-14] MEDS ORDERED: BUDESONIDE/FORMETEROL FUMARATE 80/4.5 mcg INHALER IH SCH (10:00)
[2021-09-14 10:55] LABS: HEMATOCRIT 37.7 % (35.4-49); HEMOGLOBIN 12.3 GM/dL (11.7-16.9); MCH 26.3 pg (25.7-33.7); MCHC 32.7 g/dl (32.0-35.9); MEAN CELL VOLUME 80.7 fl (80-96); MEAN PLT VOLUME 8.6 fl (7.5-11.1); PLATELET COUNT 237 10^3/uL (134-434); RBC 4.68 M/mm3 (4.00-5.60); RDW 15.1 % (11.9-15.9); WHITE BLOOD COUNT 2.6 K/mm3 (4.0-10.0)
[2021-09-14 11:03] LABS: ALBUMIN 3.4 g/dl (3.4-5.0); CALCIUM 8.9 mg/dL (8.5-10.1)
[2021-09-14 11:04] LABS: BLOOD UREA NITROGEN 12.4 mg/dL (7-18)
[2021-09-14 11:07] LABS: CREATININE 0.9 mg/dL (0.55-1.3)
[2021-09-14 11:08] LABS: BILIRUBIN,TOTAL 0.5 mg/dL (0.2-1); TOT PROT 6.7 g/dl (6.4-8.2)
[2021-09-14 17:35] VITALS: BP 121/70; PULSE 63; TEMP 97.5
== END 2021-09-14 17:35 | disposition other institution (70) | DRG 773 ==
LOC: YASAS 11:48 → Y3N 15:16
PROVIDERS: ADMIT Allergy & Immunology; ATTEND Surgery
PROC: HZ2ZZZZ Detoxification Services for Substance Abuse Treatment (ICD-10-PCS; principal; 2021-09-13)
DX: F10.230 Alcohol dependence with withdrawal, uncomplicated (principal); F11.20 Opioid dependence, uncomplicated; F14.20 Cocaine dependence, uncomplicated; F12.20 Cannabis dependence, uncomplicated; F17.213 Nicotine dependence, cigarettes, with withdrawal; F19.24 Other psychoactive substance dependence with psychoactive substance-induced mood disorder; F34.1 Dysthymic disorder; J45.20 Mild intermittent asthma, uncomplicated; J43.8 Other emphysema; K21.9 Gastro-esophageal reflux disease without esophagitis; Z28.310 Unvaccinated for COVID-19
CPT/HCPCS: 36415; 80053; 85027; 86780; 87811; C9803-CS; U0003; U0005

== ENCOUNTER 2021-09-14 17:57 | Inpatient (IN) | payer OTHER ==
[2021-09-14] MEDS ORDERED: MAG HYDROX/AL HYDROX/SIMETH 30 ML UNIT-DOSE CUP PO PRN (20:42)
[2021-09-14] MEDS ORDERED: LOPERAMIDE HCL 2 MG CAPSULE PO PRN (20:42)
[2021-09-14] MEDS ORDERED: P-EPHED 60MG/TRIPROLIDI 2.5MG TABLET PO PRN (20:42)
[2021-09-14] MEDS ORDERED: MELATONIN 5 MG TABLETS PO PRN (20:42)
[2021-09-14] MEDS ORDERED: MAGNESIUM CITRATE 300 ML BOTTLE PO PRN (20:42)
[2021-09-14] MEDS ORDERED: IBUPROFEN 400 MG TABLET (FP) PO PRN (20:42)
[2021-09-14] MEDS ORDERED: BENZOCAINE/MENTHOL (CHLORASEPTIC ) LOZENGE MM PRN (20:42)
[2021-09-14] MEDS ORDERED: guaiFENesin 200 MG/10 ML 10 ML UNIT-DOSE CUPS PO PRN (20:42)
[2021-09-14] MEDS ORDERED: ACETAMINOPHEN 325 MG TABLET (FP) PO PRN (20:42)
[2021-09-14] MEDS ORDERED: hydrOXYzine PAMOATE 25 MG CAPSULE (FP) PO PRN (20:42)
[2021-09-14] MEDS ORDERED: MAGNESIUM HYDROX 2400MG/30ML ORAL SUSPENSION 30 ML CUP PO PRN (20:42)
[2021-09-14] MEDS ORDERED: ALBUTEROL SO4 HFA INHALER IH PRN (20:44)
[2021-09-14] MEDS: THIAMINE HCL 100 MG TABLET (FP) PO SCH (22:00)
[2021-09-14] MEDS: BUDESONIDE/FORMETEROL FUMARATE 80/4.5 mcg INHALER IH SCH (22:00)
[2021-09-15] MEDS: methaDONE HCL 40 MG DISPERSABLE TABLET PO SCH (08:14)
[2021-09-15] MEDS: PRENATAL VITAMINS W/ FOLIC ACID TABLET (FP) PO SCH (10:11)
[2021-09-15] MEDS: BUDESONIDE/FORMETEROL FUMARATE 80/4.5 mcg INHALER IH SCH ×2 (10:12→21:55)
[2021-09-15] MEDS: THIAMINE HCL 100 MG TABLET (FP) PO SCH (21:55)
[2021-09-16] MEDS: methaDONE HCL 40 MG DISPERSABLE TABLET PO SCH (07:07)
[2021-09-16] MEDS: BUDESONIDE/FORMETEROL FUMARATE 80/4.5 mcg INHALER IH SCH ×2 (10:28→22:38)
[2021-09-16] MEDS: PRENATAL VITAMINS W/ FOLIC ACID TABLET (FP) PO SCH (10:28)
[2021-09-16] MEDS: THIAMINE HCL 100 MG TABLET (FP) PO SCH (22:38)
[2021-09-17] MEDS: methaDONE HCL 40 MG DISPERSABLE TABLET PO SCH (06:29)
[2021-09-17] MEDS: PRENATAL VITAMINS W/ FOLIC ACID TABLET (FP) PO SCH (10:08)
[2021-09-17] MEDS: BUDESONIDE/FORMETEROL FUMARATE 80/4.5 mcg INHALER IH SCH ×2 (10:09→22:01)
[2021-09-17] MEDS: NICOTINE 10 MG CARTRIDGE (INHALER) IH SCH (17:07)
[2021-09-17] MEDS: THIAMINE HCL 100 MG TABLET (FP) PO SCH (22:01)
[2021-09-18] MEDS: methaDONE HCL 40 MG DISPERSABLE TABLET PO SCH (06:34)
[2021-09-18] MEDS: BUDESONIDE/FORMETEROL FUMARATE 80/4.5 mcg INHALER IH SCH ×2 (09:51→23:31)
[2021-09-18] MEDS: PRENATAL VITAMINS W/ FOLIC ACID TABLET (FP) PO SCH (09:51)
[2021-09-18] MEDS: NICOTINE 10 MG CARTRIDGE (INHALER) IH SCH (09:51)
[2021-09-18] MEDS: THIAMINE HCL 100 MG TABLET (FP) PO SCH (23:31)
[2021-09-19] MEDS: methaDONE HCL 40 MG DISPERSABLE TABLET PO SCH (06:36)
[2021-09-19] MEDS: BUDESONIDE/FORMETEROL FUMARATE 80/4.5 mcg INHALER IH SCH ×2 (10:03→22:07)
[2021-09-19] MEDS: PRENATAL VITAMINS W/ FOLIC ACID TABLET (FP) PO SCH (10:03)
[2021-09-19] MEDS: NICOTINE 10 MG CARTRIDGE (INHALER) IH SCH (10:03)
[2021-09-19] MEDS: THIAMINE HCL 100 MG TABLET (FP) PO SCH (22:07)
[2021-09-20] MEDS: methaDONE HCL 40 MG DISPERSABLE TABLET PO SCH (06:35)
[2021-09-20] MEDS: PRENATAL VITAMINS W/ FOLIC ACID TABLET (FP) PO SCH (10:12)
[2021-09-20] MEDS: NICOTINE 10 MG CARTRIDGE (INHALER) IH SCH (10:12)
[2021-09-20] MEDS: BUDESONIDE/FORMETEROL FUMARATE 80/4.5 mcg INHALER IH SCH ×2 (10:12→21:44)
[2021-09-20] MEDS: THIAMINE HCL 100 MG TABLET (FP) PO SCH (21:44)
[2021-09-21] MEDS: methaDONE HCL 40 MG DISPERSABLE TABLET PO SCH (05:47)
[2021-09-21] MEDS: BUDESONIDE/FORMETEROL FUMARATE 80/4.5 mcg INHALER IH SCH ×2 (10:06→22:40)
[2021-09-21] MEDS: NICOTINE 10 MG CARTRIDGE (INHALER) IH SCH (10:06)
[2021-09-21] MEDS: PRENATAL VITAMINS W/ FOLIC ACID TABLET (FP) PO SCH (10:06)
[2021-09-21] MEDS: THIAMINE HCL 100 MG TABLET (FP) PO SCH (22:40)
[2021-09-22] MEDS: methaDONE HCL 40 MG DISPERSABLE TABLET PO SCH (06:24)
[2021-09-22] MEDS: NICOTINE 10 MG CARTRIDGE (INHALER) IH SCH (10:12)
[2021-09-22] MEDS: PRENATAL VITAMINS W/ FOLIC ACID TABLET (FP) PO SCH (10:12)
[2021-09-22] MEDS: BUDESONIDE/FORMETEROL FUMARATE 80/4.5 mcg INHALER IH SCH ×2 (10:13→22:04)
[2021-09-22] MEDS: THIAMINE HCL 100 MG TABLET (FP) PO SCH (22:04)
[2021-09-23] MEDS: methaDONE HCL 40 MG DISPERSABLE TABLET PO SCH (06:23)
[2021-09-23 06:57] VITALS: TEMP 97.8
[2021-09-23] MEDS: PRENATAL VITAMINS W/ FOLIC ACID TABLET (FP) PO SCH (10:22)
[2021-09-23] MEDS: NICOTINE 10 MG CARTRIDGE (INHALER) IH SCH (10:22)
[2021-09-23] MEDS: BUDESONIDE/FORMETEROL FUMARATE 80/4.5 mcg INHALER IH SCH (10:22)
[2021-09-23 10:58] VITALS: BP 113/68; PULSE 97
== END 2021-09-23 10:30 | disposition home or self-care (01) | DRG 772 ==
LOC: YASAS 17:57 → Y5N 17:58
PROVIDERS: ADMIT Allergy & Immunology; ATTEND Psychiatry & Neurology Pain Medicine
PROC: HZ42ZZZ Group Counseling for Substance Abuse Treatment, Cognitive-Behavioral (ICD-10-PCS; principal; 2021-09-14)
DX: F10.20 Alcohol dependence, uncomplicated (principal); F11.20 Opioid dependence, uncomplicated; F14.20 Cocaine dependence, uncomplicated; F12.20 Cannabis dependence, uncomplicated; F17.210 Nicotine dependence, cigarettes, uncomplicated; F81.9 Developmental disorder of scholastic skills, unspecified; F34.1 Dysthymic disorder; H90.11 Conductive hearing loss, unilateral, right ear, with unrestricted hearing on the contralateral side; J45.909 Unspecified asthma, uncomplicated; K21.9 Gastro-esophageal reflux disease without esophagitis; R63.4 Abnormal weight loss; Z68.1 Body mass index [BMI] 19.9 or less, adult